=== PATIENT | male | born 1950 | race Caucasian/White ===

== ENCOUNTER 2019-01-23 18:34 | Emergency (ER) | payer MEDICARE, OTHER ==
[~2019-01-23] VITALS: Ht 175 cm; Wt 72.7 kg
[2019-01-23] MEDS ORDERED: morphine INJ 10 MG/ML 1ML (SYR OR VIAL) IV STA (18:57)
[2019-01-23] MEDS ORDERED: ASPIRIN 81 MG CHEW (CHILDREN'S ASA) PO ONE (19:00)
[2019-01-23] MEDS ORDERED: NS IV 500 ML 500 ML IV ONE (19:00)
[2019-01-23] MEDS ORDERED: RT-ALBUTEROL/IPRATROPIUM 3 ML (DUONEB) VIAL INH ONE (19:00)
[2019-01-23 19:05] LABS: BASOPHILS % (AUTO) 0 % (0-10); EOSINOPHILS % (AUTO) 0 % (0-10); HEMATOCRIT 44 % (40-54); HEMOGLOBIN 14.9 G/DL (13.3-17.7); LYMPHOCYTES # (AUTO) 0.5 X 10^3 (1.0-4.0); LYMPHOCYTES % (AUTO) 4 % (12-44); MEAN CORPUSCULAR HEMOGLOBIN 30 PG (25-34); MEAN CORPUSCULAR HGB CONC 34 G/DL (32-36); MEAN CORPUSCULAR VOLUME 88 FL (80-99); MEAN PLATELET VOLUME 10.9 FL (7.4-10.4); MONOCYTES # (AUTO) 0.1 X 10^3 (0.0-1.0); MONOCYTES % (AUTO) 1 % (0-12); NEUTROPHILS # (AUTO) 13.1 X 10^3 (1.8-7.8); NEUTROPHILS % (AUTO) 96 % (42-75); PLATELET COUNT 240 10^3/uL (130-400); RED CELL DISTRIBUTION WIDTH 14.3 % (10.0-14.5); WHITE BLOOD COUNT 13.7 10^3/uL (4.3-11.0)
--- NOTE | 2019-01-23 19:07 | ED Respiratory ---
General Chief Complaint: Respiratory Problems Stated Complaint: SOB/ABD PAIN Nursing Triage Note: PT PRESENTS TO ED WITH C/O SOB AND CHEST PAIN SINCE YESTERDAY MORNING. PT HAS HX OF COPD BUT STATES "IT'S NEVER BEEN THIS BAD." PT SEEN AT [facility] BUT SX ARE UNRELENTING EVEN AFTER MEDS PRESCRIBED. Source: patient Exam Limitations: no limitations History of Present Illness Date Seen by Provider: Jan 23, 2019 Time Seen by Provider: 18:50 Initial Comments Here with report of shortness of breath and chest pain. This started yesterday morning and has progressed. He was seen at the [facility] today and started on prednisone 40 mg daily. He was given a breathing treatment and also initiated on azithromycin 5 day pack. Tonight he reports that he is having continued pain in his chest that is both tightness and pain centrally as well as difficulty with breathing. He states his oxygen saturations of been fine but he subjectively feels very short of breath and feels like he can't get his breath. He is anxious on arrival. He has had COPD for 15 years and quit smoking 15 years ago because of it. He has never had an attack like this. Timing/Duration: yesterday, getting worse Severity: moderate Prior Episodes/Possible Cause: no prior episodes Modifying Factors: Worse With Activity; Improves With Rest Associated Symptoms: chest pain/soreness; No cough, No fever/chills, No nasal congestion; shortness of breath; No sore throat, No wheezing Allergies and Home Medications Allergies Coded Allergies: No Known Drug Allergies (Unverified , 01/23/19) Patient Home Medication List Home Medication List Reviewed: Yes Review of Systems Review of Systems Constitutional: see HPI; No chills, No fever EENTM: no symptoms reported Respiratory: see HPI, dyspnea on exertion, orthopnea, short of breath Cardiovascular: chest pain; No edema, No palpitations Gastrointestinal: No abdominal pain, No nausea, No vomiting Genitourinary: no symptoms reported Musculoskeletal: no symptoms reported All Other Systems Reviewed Negative Unless Noted: Yes Past Dskkkpp-Mnzpxr-Gkdvoi Hx Past Med/Social Hx: Reviewed Nursing Past Med/Soc Hx Patient Social History Alcohol Use: Denies Use Recreational Drug Use: No Smoking Status: Former Smoker Type Used: Cigarettes 2nd Hand Smoke Exposure: No Recent Foreign Travel: No Contact w/Someone Who Travel: No Recent Infectious Disease Expo: No Recent Hopitalizations: No Seasonal Allergies Seasonal Allergies: No Past Medical History Surgeries: Yes Appendectomy Respiratory: Yes COPD Cardiac: Yes Hypertension Neurological: No Genitourinary: No Gastrointestinal: No Musculoskeletal: Yes ( defect right hand deformed.) Endocrine: No HEENT: No Cancer: No Psychosocial: No Integumentary: No Family Medical History Reviewed Nursing Family Hx No Pertinent Family Hx Physical Exam Vital Signs - First Documented 01/23/19 18:53 Temp 36.5 Pulse 98 Resp 24 B/P (MAP) 145/104 (118) Pulse Ox 97 O2 Delivery Room Air Capillary Refill : Less Than 3 Seconds Height: '" Weight: lbs. oz. kg; 23.00 BMI Method: General Appearance: WD/WN, mild distress HEENT: PERRL/EOMI, pharynx normal Neck: full range of motion, supple Respiratory: decreased breath sounds; No wheezing Cardiovascular: no murmur, tachycardia Gastrointestinal: non tender, soft Extremities: non-tender, normal inspection Neurologic/Psychiatric: alert, oriented x 3 Skin: normal color, warm/dry Progress/Results/Core Measures Suspected Sepsis Recent Fever Within 48 Hours: No Infection Criteria Present: None New/Unexplained Altered Menta: No Sepsis Screen: No Definite Risk SIRS Temperature: Pulse: 98 Respiratory Rate: 24 Laboratory Tests 01/23/19 18:50: White Blood Count 13.7H Blood Pressure 145 /104 Mean: 118 Laboratory Tests 01/23/19 18:50: Creatinine 1.89H, INR Comment 1.0, Platelet Count 240, Total Bilirubin 0.3 Results/Orders Lab Results Laboratory Tests Test 01/23/19 18:50 Range/Units White Blood Count 13.7 H 4.3-11.0 10^3/uL Red Blood Count 5.05 4.35-5.85 10^6/uL Hemoglobin 14.9 13.3-17.7 G/DL Hematocrit 44 40-54 % Mean Corpuscular Volume 88 80-99 FL Mean Corpuscular Hemoglobin 30 25-34 PG Mean Corpuscular Hemoglobin Concent 34 32-36 G/DL Red Cell Distribution Width 14.3 10.0-14.5 % Platelet Count 240 130-400 10^3/uL Mean Platelet Volume 10.9 H 7.4-10.4 FL Neutrophils (%) (Auto) 96 H 42-75 % Lymphocytes (%) (Auto) 4 L 12-44 % Monocytes (%) (Auto) 1 0-12 % Eosinophils (%) (Auto) 0 0-10 % Basophils (%) (Auto) 0 0-10 % Neutrophils # (Auto) 13.1 H 1.8-7.8 X 10^3 Lymphocytes # (Auto) 0.5 L 1.0-4.0 X 10^3 Monocytes # (Auto) 0.1 0.0-1.0 X 10^3 Eosinophils # (Auto) 0.0 0.0-0.3 10^3/uL Basophils # (Auto) 0.0 0.0-0.1 10^3/uL Neutrophils % (Manual) 97 % Lymphocytes % (Manual) 2 % Monocytes % (Manual) 0 % Eosinophils % (Manual) 0 % Band Neutrophils 0 % Reactive Lymphocytes 1 % Blood Morphology Comment NORMAL Prothrombin Time 13.3 12.2-14.7 SEC INR Comment 1.0 0.8-1.4 Activated Partial Thromboplast Time 23 L 24-35 SEC Sodium Level 139 135-145 MMOL/L Potassium Level 3.5 L 3.6-5.0 MMOL/L Chloride Level 106 98-107 MMOL/L Carbon Dioxide Level 14 L 21-32 MMOL/L Anion Gap 19 H 5-14 MMOL/L Blood Urea Nitrogen 18 7-18 MG/DL Creatinine 1.89 H 0.60-1.30 MG/DL Estimat Glomerular Filtration Rate 35 BUN/Creatinine Ratio 10 Glucose Level 132 H 70-105 MG/DL Calcium Level 9.0 8.5-10.1 MG/DL Corrected Calcium 8.5-10.1 MG/DL Magnesium Level 2.1 1.6-2.4 MG/DL Total Bilirubin 0.3 0.1-1.0 MG/DL Aspartate Amino Transf (AST/SGOT) 15 5-34 U/L Alanine Aminotransferase (ALT/SGPT) 13 0-55 U/L Alkaline Phosphatase 65 40-136 U/L Myoglobin 88.4 10.0-92.0 NG/ML Troponin I < 0.028 <0.028 NG/ML Total Protein 7.3 6.4-8.2 GM/DL Albumin 4.6 H 3.2-4.5 GM/DL My Orders Orders - CARLOZ CARRERO MD Cbc With Automated Diff (01/23/19 18:57) Magnesium (01/23/19 18:57) Chest 1 View, Ap/Pa Only (01/23/19 18:57) Ekg Tracing (01/23/19 18:57) Cardiac Profile 1 (01/23/19 18:57) Comprehensive Metabolic Panel (01/23/19 18:57) Myoglobin Serum (01/23/19 18:57) Protime With Inr (01/23/19 18:57) Partial Thromboplastin Time (01/23/19 18:57) O2 (01/23/19 18:57) Monitor-Rhythm Ecg Trace Only (01/23/19 18:57) Lipid Panel (01/24/19 06:00) Ed Iv/Invasive Line Start (01/23/19 18:57) Aspirin Chewable Tablet (Baby Aspirin Ch (01/23/19 19:00) Morphine Injection (Morphine Injection (01/23/19 18:57) Albuterol/Ipra Inhalation Soln (Duoneb I (01/23/19 19:00) Svn Small Volume Nebulizer (01/23/19 18:57) Ed Iv/Invasive Line Start (01/23/19 19:00) Ns Iv 500 Ml (Sodium Chloride 0.9%) (01/23/19 19:00) Manual Differential (01/23/19 18:50) Albuterol Pre-Mix Nebs (Rt) (Proventil (01/23/19 19:28) Svn Small Volume Nebulizer (01/23/19 19:28) Ketorolac Injection (Toradol Injection) (01/23/19 20:28) Morphine Injection (Morphine Injection (01/23/19 20:30) Medications Given in ED Current Medications Medications Dose Ordered Sig/Melissa Route Start Time Stop Time Status Last Admin Dose Admin Albuterol/ Ipratropium 3 ml ONCE ONCE INH 01/23/19 19:00 01/23/19 19:01 DC 01/23/19 19:18 3 ML Aspirin 324 mg ONCE ONCE PO 01/23/19 19:00 01/23/19 19:01 DC 01/23/19 19:07 324 MG Morphine Sulfate 4 mg ONCE ONCE IVP 01/23/19 20:30 01/23/19 20:31 DC 01/23/19 20:45 4 MG Sodium Chloride 500 ml @ 0 mls/hr Q0M ONCE IV 01/23/19 19:00 01/23/19 19:01 DC 01/23/19 19:08 500 MLS/HR Vital Signs/I&O 01/23/19 01/23/19 01/23/19 18:53 19:18 19:34 Temp 36.5 Pulse 98 Resp 24 B/P (MAP) 145/104 (118) Pulse Ox 97 99 100 O2 Delivery Room Air Room Air Room Air Capillary Refill : Less Than 3 Seconds Blood Pressure Mean: 118 POS Progress Note : Progress Note Seen and evaluated. IV, labs, EKG and chest x-ray ordered. ASA 324 mg by mouth. Morphine 4 mg IV. DuoNeb ordered. Normal saline 500 mL bolus. Monitor patient. 2016: Not moving air after initial DuoNeb. Albuterol every laser treatments 3 initiated and this did help some. Morphine did help with pain. Monitor patient. 2024: Repeat morphine 4 mg IV and Toradol 15 mg IV given for pain with breathing that appears to be more muscle related. Troponin negative after 2 days of chest pain. Monitor patient. 2104: Overall doing much better. Patient does not want stay in the hospital like to go home. He does already have an outpatient prescriptions for prednisone and azithromycin which is started. He has albuterol MDI. We did discuss in depth regarding return precautions. Discharged home with return precautions. Patient and family verbalize understanding instructions and agreement with plan. ECG Initial ECG Impression Date: Jan 23, 2019 Initial ECG Impression Time: 18:45 Initial ECG Rate: 106 Initial ECG Rhythm: S.Tach Comment Sinus tachycardia with normal axis. No evidence of ST elevation VA. No previous available for comparison. Interpreted by me. Diagnostic Imaging Diagonstic Imaging: Xray Plain Films/CT/US/NM/MRI: chest Comments [facility] POS [place], [place] POS NAME: MADALYN PATINO [facility] REC#: [id number] PT STATUS: REG ER : 1950 PHYSICIAN: CARLOZ CARRERO MD ADMIT DATE: 01/23/19/ER Draft POSDate of Exam:01/23/19 CHEST 1 VIEW, AP/PA ONLY INDICATION: Shortness of breath. EXAMINATION: Portable erect AP chest at 7:15 p.m. COMPARISON: There are no prior studies available for comparison. FINDINGS: Heart size is within normal limits. The lungs are clear. There is no evidence of failure, pneumonia or for a pleural effusion. The mediastinum is not widened. The osseous structures are intact. IMPRESSION: There is no evidence of active disease. Dictated on workstation # [id number] Dict: 01/23/191946 Trans: 01/23/191952 [facility] [id number] Interpreted by: DEMARCO MASON MD Electronically signed by: Departure Impression Primary Impression: COPD with acute exacerbation Additional Impression: Chest pain Disposition: HOME, SELF-CARE Condition: Improved Departure-Patient Inst. Decision time for Depature: 21:16 Referrals: NO,LOCAL PHYSICIAN (PCP/Family) Primary Care Physician Patient Instructions: Chronic Obstructive Pulmonary Disease (COPD), Including Emphysema, Chest Pain (DC) Add. Discharge Instructions: All discharge instructions reviewed with patient and/or family. Voiced understanding. Drink plenty of fluids. Do not take ibuprofen, Aleve, Naprosyn or any meds in that class. You may take Tylenol/acetaminophen 1000 mg every 6-8 hours as needed for pain or fever. Continue prescribed medications as directed. Follow-up with your Dr. in a few days for recheck. Return for worse pain, weakness, breathing problems, sweating, fever or other concerns as needed. Continue to monitor your blood pressure at home and if it remains elevated above 140/90 then you will need to have that further evaluated as well as you may need treatment for high blood pressure. CARLOZ CARRERO MD Jan 23, 2019 19:07 POS
[2019-01-23 19:11] LABS: PROTHROMBIN TIME PATIENT 13.3 SEC (12.2-14.7)
[2019-01-23 19:16] LABS: BAND NEUTROPHILS 0 %; EOSINOPHILS % (MANUAL) 0 %; LYMPHOCYTES % (MANUAL) 2 %; MONOCYTES % (MANUAL) 0 %; NEUTROPHILS % (MANUAL) 97 %; RBC MORPH NORMAL; REACTIVE LYMPHOCYTES 1 %
[2019-01-23 19:19] LABS: ALANINE AMINOTRANSFERASE 13 U/L (0-55); ALBUMIN 4.6 GM/DL (3.2-4.5); ALKALINE PHOSPHATASE 65 U/L (40-136); BILIRUBIN,TOTAL 0.3 MG/DL (0.1-1.0); BUN/CREATININE RATIO 10; CARBON DIOXIDE 14 MMOL/L (21-32); CHLORIDE 106 MMOL/L (98-107); CREATININE SERUM 1.89 MG/DL (0.60-1.30); GFR ESTIMATED 35; GLUCOSE 132 MG/DL (70-105); MAGNESIUM 2.1 MG/DL (1.6-2.4); POTASSIUM 3.5 MMOL/L (3.6-5.0); SODIUM 139 MMOL/L (135-145); TOTAL PROTEIN 7.3 GM/DL (6.4-8.2)
[2019-01-23] MEDS ORDERED: RT-ALBUTEROL SULF 2.5 MG/3 ML PRE-MIX VIAL INH STA (19:28)
--- NOTE | 2019-01-23 19:54 | Diagnostic Imaging Report ---
INDICATION: Shortness of breath. EXAMINATION: Portable erect AP chest at 7:15 p.m. COMPARISON: There are no prior studies available for comparison. FINDINGS: Heart size is within normal limits. The lungs are clear. There is no evidence of failure, pneumonia or for a pleural effusion. The mediastinum is not widened. The osseous structures are intact. IMPRESSION: There is no evidence of active disease. Dictated by: Dictated on workstation # [id number]
[2019-01-23] MEDS ORDERED: KETOROLAC 30 MG/ML VIAL IVP STA (20:28)
[2019-01-23] MEDS ORDERED: morphine INJ 10 MG/ML 1ML (SYR OR VIAL) IVP ONE (20:30)
[2019-01-23 21:39] VITALS: BP 149/113
== END 2019-01-23 21:40 | disposition home or self-care (01) ==
LOC: ER 18:35
DX: J44.1 Chronic obstructive pulmonary disease with (acute) exacerbation (principal); R07.9 Chest pain, unspecified; I10 Essential (primary) hypertension; Z87.891 Personal history of nicotine dependence; Z90.49 Acquired absence of other specified parts of digestive tract
CPT/HCPCS: 36415; 71045; 80053; 83735; 83874; 84484; 85007; 85027; 85610; 85730; 93005; 93041; 94640

== ENCOUNTER → 2019-03-25 | Outpatient (CLI) | payer MEDICARE ==
[~2019-03-25] MED LIST: RT-ALBUTEROL SULF 2.5 MG/3 ML PRE-MIX VIAL INH ONE
== END ==
LOC: RT 08:41
PROVIDERS: ATTEND Internal Medicine
DX: J44.9 Chronic obstructive pulmonary disease, unspecified (principal); Z87.891 Personal history of nicotine dependence
CPT/HCPCS: 94060; 94726; 94729